=== PATIENT | male | born 1945 | race Caucasian/White ===

== ENCOUNTER 2017-10-22 07:13 | Day surgery (SDC) | payer MEDICARE ==
[~2017-10-22] VITALS: Ht 182.9 cm; Wt 98.5 kg
[~2017-10-22 07:13] MED LIST: DICL25ER; ERGO400; Flonase 0.05% N16 GM; Hair, Skin & N1 EACH; NEPHROCAPS QT1 EACH; OMEPRAZOLE MAGN20 MG
[2017-10-22] MEDS ORDERED: ATOR20 (07:48)
== END 2017-10-22 09:49 | disposition home or self-care (01) ==
LOC: ORSCSDS 07:13
PROVIDERS: Internal Medicine Gastroenterology
PROC: 0DBM8ZX Excision of Descending Colon, Via Natural or Artificial Opening Endoscopic, Diagnostic (ICD-10-PCS; principal; 2017-10-22 08:30)
PROC: 0DBL8ZX Excision of Transverse Colon, Via Natural or Artificial Opening Endoscopic, Diagnostic (ICD-10-PCS; principal; 2017-10-22 08:30)
PROC: 0DBP8ZX Excision of Rectum, Via Natural or Artificial Opening Endoscopic, Diagnostic (ICD-10-PCS; principal; 2017-10-22 08:30)
PROC: 0DB58ZX Excision of Esophagus, Via Natural or Artificial Opening Endoscopic, Diagnostic (ICD-10-PCS; principal; 2017-10-22 08:30)
PROC: 0DBH8ZX Excision of Cecum, Via Natural or Artificial Opening Endoscopic, Diagnostic (ICD-10-PCS; principal; 2017-10-22 08:30)
DX: K22.70 Barrett's esophagus without dysplasia (principal); K44.9 Diaphragmatic hernia without obstruction or gangrene; D12.0 Benign neoplasm of cecum; D12.3 Benign neoplasm of transverse colon; D12.4 Benign neoplasm of descending colon; K62.1 Rectal polyp; K64.8 Other hemorrhoids; K57.30 Diverticulosis of large intestine without perforation or abscess without bleeding; Z12.11 Encounter for screening for malignant neoplasm of colon; Z86.010 Personal history of colon polyps; E78.5 Hyperlipidemia, unspecified; N40.0 Benign prostatic hyperplasia without lower urinary tract symptoms; E78.00 Pure hypercholesterolemia, unspecified; Z87.891 Personal history of nicotine dependence; Z79.899 Other long term (current) drug therapy
CPT/HCPCS: 88305; J0330; J1980; J2405; J7120

== ENCOUNTER 2023-02-15 19:04 | Emergency (ER) | payer OTHER ==
[~2023-02-15] VITALS: Ht 182.9 cm; Wt 97.5 kg
[~2023-02-15 19:04] MED LIST changes: +ATOR20
[2023-02-15 19:10] VITALS: BP 161/88
== END 2023-02-15 20:11 | disposition home or self-care (01) ==
LOC: ER 19:04
DX: H11.441 Conjunctival cysts, right eye (principal); Z88.2 Allergy status to sulfonamides; Z88.1 Allergy status to other antibiotic agents; Z87.891 Personal history of nicotine dependence
CPT/HCPCS: 99282; A9270

== ENCOUNTER 2023-03-29 09:27 | Observation (INO) | payer OTHER ==
[~2023-03-29] VITALS: Ht 182.9 cm; Wt 100.0 kg
[2023-03-29] VITALS (13 sets, daily range): BP systolic 111–141; BP diastolic 80–99
[2023-03-29 10:39] LABS: Source, Urine Clean Catch
[2023-03-29 10:53] LABS: Appearance, Urine Hazy (Clear); Blood, Urine Neg (Neg); Glucose Qualitative, Urine Neg (Neg); Ketones, Urine 1+ (Neg); Leukocyte Esterase, Urine 1+ (Neg); Nitrite, Urine Pos (Neg); Protein, Urine 2+ (Neg); Urobilinogen, Urine NORM (Normal)
[2023-03-29 10:59] LABS: Bilirubin, Urine 1+ (Neg); Color, Urine Amber (P-Yellow)
[2023-03-29 11:02] LABS: Hyaline Casts 0-2 /lpf (0-2); Mucus Heavy (0-Heavy)
[2023-03-29 11:04] LABS: Bacteria Many /hpf; Red Blood Cells, Urine 0-2 /hpf (0-2); Squamous Epithelial Cells Rare /hpf (Few)
[2023-03-29 11:08] LABS: BASOPHILS ABSOLUTE AUTO 0.03 K/mm3 (0.00-0.23); BASOPHILS PERCENT AUTO 0 % (0-2); EOSINOPHILS ABSOLUTE AUTO 0.01 K/mm3 (0.00-0.68); EOSINOPHILS PERCENT AUTO 0 % (0-6); Hematocrit 46.7 % (37.0-53.0); Hemoglobin 16.2 g/dL (13.5-17.5); IMMATURE GRAN ABSOLUTE AUTO 0.06 K/mm3 (0.00-0.10); IMMATURE GRAN PERCENT AUTO 0 % (0-1); LYMPHOCYTES ABSOLUTE AUTO 2.52 K/mm3 (0.84-5.20); LYMPHOCYTES PERCENT AUTO 17 % (21-46); MONOCYTES ABSOLUTE AUTO 1.05 K/mm3 (0.16-1.47); MONOCYTES PERCENT AUTO 7 % (4-13); Mean Corpuscular HGB 31.3 pg (26.0-34.0); Mean Corpuscular HGB Conc 34.7 g/dL (31.5-36.5); Mean Corpuscular Volume 90 fL (80-100); Mean Platelet Volume 9.5 fL (9.1-12.4); NEUTROPHILS ABSOLUTE AUTO 11.56 K/mm3 (1.96-9.15); NEUTROPHILS PERCENT AUTO 76 % (41-73); Platelet Count 214 K/mm3 (150-400); RDW Coefficient Variation 12.5 % (11.7-14.2); Red Blood Cell Count 5.18 M/mm3 (4.30-5.90); White Blood Cell Count 15.23 K/mm3 (4.00-11.30)
[2023-03-29 11:34] LABS: Albumin, Blood 3.4 g/dL (3.4-5.0); Albumin/Globulin Ratio 0.8 (0.8-1.8); Bilirubin, Total 0.9 mg/dL (0.1-1.0); Bun/Creatinine Ratio 13.8 (12.0-20.0); Calcium, Blood 8.8 mg/dL (8.5-10.1); Creatinine, Blood 0.87 mg/dL (0.60-1.20); Globulin, Blood 4.1 g/dL (2.2-4.0); Potassium, Blood 3.6 mmol/L (3.5-5.5); Total Protein, Blood 7.5 g/dL (6.4-8.2)
--- NOTE | 2023-03-29 14:12 | NUR ---
PT HAS 20G IV IN LEFT AC THAT FLUSHES WELL AND FLOWS TO GRAVITY.
--- NOTE | 2023-03-29 14:44 | NUR ---
PT GLASSES TAKEN TO PACU FOR SAFEKEEPING. PT OTHER BELONGINGS GIVEN TO FOR SAFEKEEPING.
--- NOTE | 2023-03-29 15:05 | NUR ---
03/29/23 1505 Joel Walters PT RECIEVED PRE OP ANTIBIOTICS PRIOR TO ARRIVAL TO OR.
--- NOTE | 2023-03-29 19:35 | NUR ---
SHIFT SUMMARY POD0 LAP APPY, A/O X4, VSS, TOLERATING PO, DENIES PAIN AMBULATES TO THE BATHROOM INDPENDENTLY. NO ACUTE EVENTS THIS SHIFT, CALL LIGHT IN REACH, REPORT GIVEN TO RICHAR FLETCHER.
[2023-03-30 04:36] VITALS: BP 116/80
--- NOTE | 2023-03-30 05:00 | NUR ---
SHIFT SUMMARY POD 1 LAP APPY. 3 LAP INCISION SITES C/D/I W/ TAPE. PT UP IN ROOM TO BATHROOM, IN ROOM W/ ASSISTING PRN. PT A&OX4, PLEASANT AND COOPERATIVE. PT PLANS FOR DISCHARGE TO HOME TODAY. NO ACUTE CHANGES THIS SHIFT. CALL LIGHT W/IN REACH.
[2023-03-30 07:31] VITALS: BP 121/82
--- NOTE | 2023-03-30 13:18 | NUR ---
DISCHARGE: PACKET PRINTED AND PT EDUCATED, VERBALIZED UNDERSTANDING. VSS. IV DC'D WNL, TIP INTACT. PT LEFT UNIT ON FOOT AT ABOUT 1210
== END 2023-03-30 12:33 | disposition home or self-care (01) ==
LOC: ER 09:27 → SURS 09:28
PROVIDERS: Emergency Medicine; Physician Assistant; ADMIT Surgery
PROC: 0DTJ4ZZ Resection of Appendix, Percutaneous Endoscopic Approach (ICD-10-PCS; principal; 2023-03-29 14:00)
DX: K35.80 Unspecified acute appendicitis (principal); Z87.891 Personal history of nicotine dependence; Z88.1 Allergy status to other antibiotic agents; Z88.2 Allergy status to sulfonamides
CPT/HCPCS: 74177; 80053; 81001; 83690; 85025; 87086; 88304; 93005; 93010; 96365-59; 99285-25; A9270; J1100; J2250; J2405; J2543; J2704; J3010; J7030; Q9967

== ENCOUNTER 2023-05-22 07:26 | Day surgery (SDC) | payer OTHER ==
[~2023-05-22] VITALS: Ht 182.9 cm; Wt 98.4 kg
[2023-05-22 09:21] VITALS: BP 120/85
== END 2023-05-22 09:22 | disposition home or self-care (01) ==
LOC: ORSCSDS 07:26
PROVIDERS: Surgery
PROC: 0DJD8ZZ Inspection of Lower Intestinal Tract, Via Natural or Artificial Opening Endoscopic (ICD-10-PCS; principal; 2023-05-22 08:45)
DX: R93.3 Abnormal findings on diagnostic imaging of other parts of digestive tract (principal); K57.30 Diverticulosis of large intestine without perforation or abscess without bleeding; Z87.891 Personal history of nicotine dependence; K21.9 Gastro-esophageal reflux disease without esophagitis; E78.5 Hyperlipidemia, unspecified; I10 Essential (primary) hypertension; K22.70 Barrett's esophagus without dysplasia; Z79.899 Other long term (current) drug therapy
CPT/HCPCS: J2704; J7120

== ENCOUNTER 2025-08-05 14:55 | Inpatient (IN) | payer OTHER ==
[~2025-08-05] VITALS: Ht 182.9 cm; Wt 97.7 kg
[~2025-08-05 14:55] MED LIST changes: -DICL25ER; +DICL75ER PO; -ERGO400; +ERGO400 PO
[2025-08-05 15:43] LABS: BASOPHILS ABSOLUTE AUTO 0.02 K/mm3 (0.00-0.23); BASOPHILS PERCENT AUTO 0 % (0-2); EOSINOPHILS ABSOLUTE AUTO 0.18 K/mm3 (0.00-0.68); EOSINOPHILS PERCENT AUTO 2 % (0-6); Hematocrit 41.6 % (37.0-53.0); Hemoglobin 14.2 g/dL (13.5-17.5); IMMATURE GRAN ABSOLUTE AUTO 0.03 K/mm3 (0.00-0.10); IMMATURE GRAN PERCENT AUTO 0 % (0-1); LYMPHOCYTES ABSOLUTE AUTO 2.22 K/mm3 (0.84-5.20); LYMPHOCYTES PERCENT AUTO 29 % (21-46); MONOCYTES ABSOLUTE AUTO 0.53 K/mm3 (0.16-1.47); MONOCYTES PERCENT AUTO 7 % (4-13); Mean Corpuscular HGB Conc 34.1 g/dL (31.5-36.5); Mean Corpuscular Volume 91 fL (80-100); NEUTROPHILS ABSOLUTE AUTO 4.77 K/mm3 (1.96-9.15); NEUTROPHILS PERCENT AUTO 62 % (41-73); NRBC ABSOLUTE 0.00 K/mm3 (0.00-0.02); NRBC Auto 0.0 /100 WBC (0.0-0.2); Platelet Count 201 K/mm3 (150-400); RDW Coefficient Variation 12.3 % (11.7-14.2); RDW Standard Deviation 40.9 fL (35.1-46.3)
[2025-08-05 15:58] LABS: Prothrombin Time Results 10.6 Sec (9.7-11.5)
[2025-08-05 16:13] LABS: Alanine Aminotransfer (ALT/SGP 25 U/L (12-78); Albumin, Blood 3.2 g/dL (3.4-5.0); Albumin/Globulin Ratio 0.9 (0.8-1.8); Anion Gap 8 mmol/L (3-11); Aspartate Aminotrans (AST/SGOT 21 U/L (12-37); Bilirubin, Total 0.4 mg/dL (0.1-1.0); Blood Urea Nitrogen 20 mg/dL (8-24); CO2, Blood 25 mmol/L (21-32); Calcium, Blood 8.2 mg/dL (8.5-10.1); Chloride, Blood 107 mmol/L (98-108); Creatinine, Blood 0.84 mg/dL (0.60-1.20); Ethanol (Alcohol), Blood, Med <3 mg/dL; Globulin, Blood 3.4 g/dL (2.2-4.0); Glucose, Blood 101 mg/dL (70-99); Potassium, Blood 3.7 mmol/L (3.5-5.5); Sodium, Blood 136 mmol/L (136-145); Total Protein, Blood 6.6 g/dL (6.4-8.2)
[2025-08-05 17:13] LABS: U Amphetamine Screen Not Detected; U Barbiturate Screen Not Detected; U Benzodiazapine Screen Not Detected; U Buprenorphine Screen Not Detected; U Cannabinoids Screen DETECTED; U Cocaine Screen Not Detected; U Methadone Screen Not Detected; U Methamphetamine Screen Not Detected; U Opiates Screen Not Detected; U Oxycodone Screen Not Detected; U Phencyclidine Screen Not Detected
[2025-08-05] MEDS ORDERED: NS 1,000 ML IV SCH (19:00)
[2025-08-05] MEDS ORDERED: Ondansetron HCl 2 MG / ML 2ML Vial IV PRN (19:00)
[2025-08-05] MEDS ORDERED: FLU VACC TS2025(65UP)/MF59C/PF 45 MCG/0.5 ML SYRINGE IM SCH (19:05)
--- NOTE | 2025-08-05 21:23 | NUR ---
TOOK REPORT ON PT FROM ED CHANCE HATFIELD @ [id number].
[2025-08-05 21:41] VITALS: BP 161/92
[2025-08-05] MEDS ORDERED: MAGNESIUM OXID500 MG PO (21:48)
[2025-08-05] MEDS ORDERED: Calcium Carbon500 MG PO (21:49)
[2025-08-06 04:01] VITALS: BP 145/84
--- NOTE | 2025-08-06 04:21 | NUR ---
SHIFT SUMMARY NOC PT A/O X 4. PLEASANT AND COOPERATIVE WITH CARE. VSS. PT ADMIT FOR CVA WITH R SIDED WEAKNESS. PT SCORED 5 ON NIH STROKE SCALE, WITH RUE/RLE DRIFT WITH EFFORT AND MILD ATAXIA IN RUE. NO SWALLOWING ISSUES NOTED PT ON REGULAR DIET WITH GOOD PO INTAKE, BUT HAS IVF NS @ 100 L/HR X 1L INFUSING. PT ON TELE SINUS RHYTHM IN 70'S. 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 PT ALSO HAS ECHO SCHEDULED FOR TODAY. MEDICATIONS HAVE BEEN RECONCILED. PT CURRENTLY RESTING WITH BED IN LOWEST POSITION, AND CALL LIGHT WITHIN REACH.
[2025-08-06 06:25] LABS: CHOL/HDL RATIO 5.3; Cholesterol 212 mg/dL (50-200); HDL Cholesterol 40 mg/dL (>39); LDL/HDL RATIO 2.9; Low Density Lipoprotein Chol 117 mg/dL (0-110); Triglycerides 274 mg/dL (30-160); Very Low Density Lipoprot Chol 54 mg/dL (6-32)
[2025-08-06 07:11] VITALS: BP 153/88
[2025-08-06] MEDS ORDERED: Enoxaparin 40 MG/0.4 ML SYR SC SCH (09:00)
[2025-08-06 11:21] VITALS: BP 133/86
[2025-08-06 15:41] VITALS: BP 147/89
--- NOTE | 2025-08-06 16:10 | NUR ---
SHIFT SUMMARY: PATIENT IS A&OX4/INDEPENDENT. HE COMPLETED MRI OF HEAD AND ECHO TODAY; RESULTS STILL PENDING FOR ECHO. CVA SYMTOMS RESOLVED AT THIS TIME. LINDAT IN HIS ROOM WITH HIS AT BEDSIDE, NO SIGNS OR SYMPTOMS OF DISTRESS, CALL LIGHT WITHIN REACH, PLAN OF CARE ONGOING.
[2025-08-06 19:23] VITALS: BP 132/89
[2025-08-06] MEDS ORDERED: Fluticasone 0.05% Nasal Spray SCH (21:00)
[2025-08-06 23:46] VITALS: BP 131/85
[2025-08-07 05:24] VITALS: BP 125/83
--- NOTE | 2025-08-07 05:33 | NUR ---
NO ACUTE CHANGES, PT AMBULATING WELL TO BATHROOM AT BEDSIDE, PLEASANT, AND USES CALL LIGHT APPROPRIATELY. NO C/O WEAKNESS.
[2025-08-07 07:07] VITALS: BP 148/95
[2025-08-07] MEDS ORDERED: Cholecalciferol 1000 Unit Tablet (=25MCG) PO SCH (09:00)
[2025-08-07] MEDS ORDERED: ASPI81CH PO (11:20)
[2025-08-07] MEDS ORDERED: ATOR80 PO (11:21)
[2025-08-07] MEDS ORDERED: CLOP75 PO (11:21)
[2025-08-07 11:41] VITALS: BP 121/89
--- NOTE | 2025-08-07 12:45 | NUR ---
DISCHARGE NOTE: WENT OVER DISCHARGE WITH THE PATIENT. IV AND TELE REMOVED. ZIO PATCH PLACED. PATIENT GOT DRESSED AND COLLECTED BELONGINGS. PATIENT WHEELED DOWN. NO SIGNS OR SYMPTOMS OF DISTRESS DURING DISCHARGE.
[2025-08-09 23:40] LABS: HOMOCYSTEINE, TOTAL 9 umol/L (0-15)
[2025-08-10 13:00] LABS: ANTITHROMBIN, ENZYM (ACTIVITY) 112 % (76-128)
[2025-08-10 15:09] LABS: PROTEIN C FUNCTIONAL 192 % (83-168)
[2025-08-10 15:59] LABS: B2GLYCOPROTEIN 1, IGG ANTIBODY <10 SGU (<=20); B2GLYCOPROTEIN 1, IGM ANTIBODY <10 SMU (<=20)
[2025-08-10 21:48] LABS: APC RESISTANCE 3.69 (>=2.00); FACTOR V LEIDEN BY PCR Not Done; FACV REF SPECIMEN Not Done
[2025-08-10 21:53] LABS: PROTEIN S AG FREE 114 % (74-147)
== END 2025-08-07 13:18 | disposition home or self-care (01) | DRG 65 ==
LOC: ER 14:55 → MEDS 14:56
PROVIDERS: Family Medicine; Nurse Practitioner Acute Care; Student in an Organized Health Care Education/Training Program; ADMIT Student in an Organized Health Care Education/Training Program
DX: I63.49 Cerebral infarction due to embolism of other cerebral artery (principal); G81.91 Hemiplegia, unspecified affecting right dominant side; R29.702 NIHSS score 2; K21.9 Gastro-esophageal reflux disease without esophagitis; I10 Essential (primary) hypertension; F10.20 Alcohol dependence, uncomplicated; E66.9 Obesity, unspecified; F12.90 Cannabis use, unspecified, uncomplicated; E78.5 Hyperlipidemia, unspecified; Z87.891 Personal history of nicotine dependence; Z88.2 Allergy status to sulfonamides; Z88.1 Allergy status to other antibiotic agents; Z95.828 Presence of other vascular implants and grafts; Z68.29 Body mass index [BMI] 29.0-29.9, adult
CPT/HCPCS: 36415; 70450; 70496; 70498; 70551; 80053; 80061; 80320; 82947; 83036; 85025; 85610; 85730; 93005; 93010; 93246; 93306; 96372; 97110; 97116; 97161; 97165; 97530; 99291-25; A9270; G0378; J1650; J7030; Q9967